=== PATIENT | male | born 1985 | race Caucasian/White ===

== ENCOUNTER 2023-07-12 07:02 | Day surgery (SDC) | payer OTHER ==
[2023-07-07 12:29] LABS: BASOPHILS % (AUTO) 0.6 % (0-1); EOSINOPHILS # (AUTO) 0.2 X10'3 (0-0.9); EOSINOPHILS % (AUTO) 4.2 % (0-6); LYMPHOCYTES # (AUTO) 1.9 X10'3 (1.1-4.8); MEAN CORPUSCULAR HEMOGLOBIN 30.4 PG (27.0-31.0); MEAN CORPUSCULAR HGB CONC 33.3 g/dL (33.0-36.5); MEAN CORPUSCULAR VOLUME 91.3 FL (78-98); MEAN PLATELET VOLUME 7.6 FL (7.4-10.4); MONOCYTES # (AUTO) 0.5 X10'3 (0-0.9); MONOCYTES % (AUTO) 9.7 % (2-12); NEUTROPHILS # (AUTO) 2.5 X10'3 (1.8-7.7); NEUTROPHILS % (AUTO) 48.5 % (42-75); PRE OP HEMOGLOBIN 15.4 g/dL (14.0-17.9); PRE OP PLATELET COUNT 243 X10'3 (140-440); PRE OP WHITE BLOOD COUNT 5.1 10'3 (4.8-10.8); RED BLOOD COUNT 5.05 X10'6 (4.70-6.10); RED CELL DISTRIBUTION WIDTH 14.9 % (11.5-14.5)
[2023-07-07 12:40] LABS: ALBUMIN 4.1 G/DL (3.4-5.0); ALBUMIN/GLOBULIN RATIO 1.2 (1.1-1.5); ALKALINE PHOSPHATASE 82 IU/L (46-116); BLOOD UREA NITROGEN 14 MG/DL (7-18); CALCIUM 8.8 MG/DL (8.5-10.1); CHLORIDE 105 MMOL/L (99-107); PRE OP ALT 43 U/L (30-65); PRE OP ANION GAP 7 (8-16); PRE OP AST 26 U/L (10-37); PRE OP BILIRUB, TOTAL 0.3 MG/DL (0.0-1.0); PRE OP GLUCOSE 97 MG/DL (70-104); PRE OP SODIUM 142 MMOL/L (135-145); TOTAL CARBON DIOXIDE 29.9 MMOL/L (24-32); TOTAL PROTEIN 7.6 G/DL (6.4-8.2); eGFR 85 ML/MIN
[~2023-07-12] VITALS: Ht 188 cm; Wt 142.8 kg
[2023-07-12] VITALS (7 sets, daily range): BP systolic 129–160; BP diastolic 83–114; PULSE 65–95; RESP 12–17; TEMP 97.9; O2SAT 96–98
[~2023-07-12 07:02] MED LIST: NO HOME MEDS; ceFAZolin inj. 3,000 MG in normal saline 100ml IV soln 100 ML IV ONE; famotidine 20mg tablet PO ONE; ringers solution, lacted 1,000 ML IV SCH
[2023-07-12] MEDS ORDERED: proCHLORperazine 10 MG/2 ml inj IV PRN (07:40)
[2023-07-12] MEDS ORDERED: meperidine/PF 25mg/ml syringe IV PRN ×3 (07:40)
[2023-07-12] MEDS ORDERED: ondansetron/PF 4mg/2ml inj IV PRN (07:40)
[2023-07-12] MEDS ORDERED: acetaminophen 1,000mg/100ml IV 100 ML IV PRN (07:40)
[2023-07-12] MEDS ORDERED: morphine 4 MG/ML inj SYRINge IV PRN (07:40)
[2023-07-12] MEDS ORDERED: ketorolac trometh. 30mg/ml inj. IV ONE (07:40)
[2023-07-12] MEDS ORDERED: hydrALAZINE 20mg/ml inj. IV PRN (07:40)
[2023-07-12] MEDS ORDERED: ringers solution, lacted 1,000 ML IV SCH (07:40)
[2023-07-12] MEDS ORDERED: labetalol 20mg/4ml (5mg/ml) syringe IV PRN (07:40)
[2023-07-12] MEDS ORDERED: morphine 2 MG/ML inj. syringe IV PRN (07:40)
[2023-07-12] MEDS ORDERED: midazolam 1 mg/ML 2ml injection ONE (07:42)
[2023-07-12] MEDS ORDERED: sevoflurane 250ml liquid IH ONE (08:00)
[2023-07-12] MEDS ORDERED: BUPIVACAINE liposomal/PF 13.3 MG/ML vial IM ONE (08:02)
[2023-07-12] MEDS ORDERED: BUPIVAcaine/PF 2.5mg/ml (0.25%) 10ml vial ONE ×2 (08:02→08:09)
[2023-07-12] MEDS ORDERED: LIDOcaine 1% (10mg/ml)w/preservative inj. 20ml MDV ONE (08:09)
[2023-07-12] MEDS ORDERED: dexamethasone sod phosphate 4mg/ml inj. ONE (09:16)
[2023-07-12] MEDS ORDERED: LIDOcaine 2% (20mg/ml) 5ml vial ONE (09:16)
[2023-07-12] MEDS ORDERED: ondansetron/PF 4mg/2ml inj ONE (09:16)
[2023-07-12] MEDS ORDERED: propofol inj 20 ML IV ONE ×2 (09:16)
[2023-07-12] MEDS ORDERED: fentaNYL /PF 50mcg/ml 5ml ampule ONE (09:16)
[2023-07-12] MEDS ORDERED: rocuronium 10mg/ml inj IV ONE (09:16)
[2023-07-12] MEDS ORDERED: neostigmine methylsulfate 1 MG/ML 10ml vial ONE (09:18)
[2023-07-12] MEDS ORDERED: glycopyrrolate 0.2mg/ml inj ONE (09:18)
--- NOTE | 2023-07-12 09:30 | NUR ---
Received from OR via [facility] TO [facility], accompanied by Anesthesiologist ANGELES and report given by Anesthesiologist. PT PRESENTS ON 10L VIA MASK, VSS. PT C/O PAIN TO UPPER ABD 03/28 - WILL GIVE PAIN MEDS; MD IN ROOM. PT IS NEUROLOGICALLY INTACT AND CAN MAKE HIS NEEDS KNOWN. LR RUNNING THRU PIV. 4 ABD LAP SITES ARE CDI AND ABD BINDER IN PLACE. SCD'S ARE ON.
[2023-07-12] MEDS ORDERED: oxyCODONE/APAP 5-325mg tablet PO PRN (09:35)
--- NOTE | 2023-07-12 10:40 | NUR ---
PT HAS MET D/C CRITERIA. IV D/C'D. VSS. ABD DRESSINGS REMAINS C/D/I WITH ABD BINDER IN PLACE. I HAVE REVIEWED D/C INSTRUCTIONS WITH PATIENT AND HE HAS VERBALIZED UNDERSTANDING OF INSTRUCTIONS. ALL QUESTIONS, COMMENTS, AND CONCERNS WERE ANSWERED AT THIS TIME. ALSO GAVE INSTRUCTIONS ON HOW TO PREVENT CONSTIPATION WITH PAIN MEDS, NO BEARING DOWN, AND PATIENT IS ABLE TO AMBULATE WITH NO LOSS OF BALANCE. PT WAS ABLE TO GET DRESSED WITH ASSISTANCE AND AMBULATED TO W/C WITH STANDBY ASSIST. PT WAS WHEELED OUT TO PRIVATE VEHICLE AND TRANSFERRED INTO VEHICLE WITHOUT INCIDENT. PATIENT D/C HOME WITH ALL BELONGINGS.
== END 2023-07-12 10:40 | disposition home or self-care (01) ==
LOC: PAS 07:02
PROVIDERS: ATTEND Surgery
DX: K42.9 Umbilical hernia without obstruction or gangrene (principal); Z79.899 Other long term (current) drug therapy; Z98.890 Other specified postprocedural states; Z91.013 Allergy to seafood; Z72.89 Other problems related to lifestyle
CPT/HCPCS: 36415; 49591; 64488; 80053; 82948; 85025; C1781; C9290; J0131; J0690; J1100; J1885; J2175; J2250; J2405; J2704; J2710; J3010; J3490; J7030; J7120; Z7506; Z7508; Z7512; A4215; A4618